=== PATIENT | male | born 1980 | race Caucasian/White ===

== ENCOUNTER 2017-07-19 18:36 | Emergency (ER) | payer OTHER ==
[~2017-07-19] VITALS: Ht 177.8 cm; Wt 73.7 kg
[2017-07-19] MEDS ORDERED: PERCOCET 5/31 TABLET PO (20:19)
[2017-07-19] MEDS ORDERED: VALIUM5 MG PO (20:19)
[2017-07-19] MEDS ORDERED: MOTRIN800 MG PO (20:19)
[2017-07-19 20:29] VITALS: BP 147/98
== END 2017-07-19 20:39 | disposition home or self-care (01) ==
LOC: EME 18:36
DX: M54.5 Low back pain (principal); G89.29 Other chronic pain; F17.200 Nicotine dependence, unspecified, uncomplicated
CPT/HCPCS: 99281; 99284